=== PATIENT | female | born 1930 | race Caucasian/White ===

== ENCOUNTER → 2016-12-01 | Outpatient (CLI) | payer OTHER, BC ==
--- NOTE | 2016-12-01 16:38 | MAMMOGRAPHY REPORT ---
UNILATERAL LEFT DIGITAL SCREENING MAMMOGRAM WITH CAD: 12/01/2016 CLINICAL HISTORY: Routine screening examination. Personal history of right breast cancer status pos t mastectomy. TECHNIQUE: Left CC and MLO views were obtained. Current study was also evaluated with a Computer ded Detection (CAD) system. COMPARISON: Comparison is made to exams dated: 12/01/2016 mammogram, 11/26/2015 mammogram, 11/14/2014 m ammogram, and 10/07/2012 mammogram - [facility]. BREAST COMPOSITION: The tissue of the left breast is heterogeneously dense, which may obscure small masses. FINDINGS: The parenchymal pattern is unchanged. Again seen are moderate vascular calcifications. No developing mass, architectural distortion or cluster of suspicious microcalcifications is seen. IMPRESSION: ACR BI-RADS CATEGORY 2: BENIGN Stable mammographic appearance of the left breast, without mammographic evidence of malignancy. A 1 year screening mammogram is recommended. The patient will receive written notification of the resul ts. Approximately 10% of breast cancers are not detected with mammography. A negative mammographic repor t should not delay biopsy if a clinically suggestive mass is present. Yun Mayes M.D. ay/:12/01/2016 15:51:42 Clinic Lpn: Tiffanie SCHULTZ(Micki)(Edy), [facility] letter sent: Normal 1/2 BI-RADS Code: ACR BI-RADS Category 2: Benign
== END | disposition home or self-care (01) ==
LOC: C.MAMM 13:33
PROVIDERS: ATTEND Internal Medicine
DX: Z12.31 Encounter for screening mammogram for malignant neoplasm of breast (principal); Z85.3 Personal history of malignant neoplasm of breast; Z90.10 Acquired absence of unspecified breast and nipple; Z78.0 Asymptomatic menopausal state

== ENCOUNTER → 2016-12-25 | Outpatient (CLI) | payer OTHER, BC | END | disposition home or self-care (01) | LOC: C.LABFOXMH 07:40 | PROVIDERS: ATTEND Internal Medicine | DX: M81.0 Age-related osteoporosis without current pathological fracture (principal) ==

== ENCOUNTER → 2017-02-23 | Outpatient (CLI) | payer OTHER, BC ==
[2017-02-23 10:43] LABS: BLOOD UREA NITROGEN 23 mg/dl (7-18); BUN/CREATININE RATIO 17.7 (10-20); CALCIUM 9.5 mg/dl (8.5-10.1); CARBON DIOXIDE 29 mmol/L (21-32); CHLORIDE 107 mmol/L (98-107); GLUCOSE 113 mg/dl (70-99); POTASSIUM 4.2 mmol/L (3.5-5.1); SODIUM 145 mmol/L (136-145)
== END | disposition home or self-care (01) ==
LOC: C.LABFOXMH 08:56
PROVIDERS: ATTEND Internal Medicine
DX: N18.3 Chronic kidney disease, stage 3 (moderate) (principal); E78.4 Other hyperlipidemia

== ENCOUNTER → 2017-07-20 | Outpatient (CLI) | payer OTHER, BC | END | disposition home or self-care (01) | LOC: C.LABFOXMH 12:15 | PROVIDERS: ATTEND Internal Medicine | DX: R35.0 Frequency of micturition (principal); R30.0 Dysuria ==

== ENCOUNTER → 2017-10-08 | Outpatient (CLI) | payer OTHER, BC ==
--- NOTE | 2017-10-19 14:08 | CODING QUERY NO DIAGNOSIS ---
: 1930 Valid Physician Order Needed A valid physician order must be submitted in order to properly bill for the service(s) provided, including date of service(s), valid diagnosis, and physician signature. If these tests are done on a recurring basis the original physician order must be submitted in order to code and bill for the service(s) provided. Please fax us the original, signed physician order so that we may expedite billing to [phone] DOS 10/08/2017 * Urine clean catch culture Thank you Ayah Polanco [facility] Information Management
== END | disposition home or self-care (01) ==
LOC: C.LABFOXDH 23:40
PROVIDERS: ATTEND Internal Medicine
DX: R53.83 Other fatigue (principal); R35.0 Frequency of micturition

== ENCOUNTER → 2017-10-09 | Outpatient (CLI) | payer OTHER, BC ==
[2017-10-09 08:46] LABS: HEMOGLOBIN 11.4 g/dL (12.0-16.0); MEAN CELL VOLUME 96.9 fL (80-100); MEAN CORPUSCULAR HEMOGLOBIN 32.5 pg (25-34); MEAN CORPUSCULAR HGB CONC 33.5 g/dl (32-36); MEAN PLATELET VOLUME 10.2 fL (7.4-10.4); PLATELET COUNT 170 K/uL (130-400); RED CELL DISTRIBUTION WIDTH CV 13.4 % (11.5-14.5); RED CELL DISTRIBUTION WIDTH SD 47.6 fL (36.4-46.3); WHITE BLOOD COUNT 8.03 K/uL (4.8-10.8)
[2017-10-09 08:55] LABS: ALBUMIN 3.1 gm/dl (3.4-5.0); ALT/SGPT 18 U/L (12-78); BLOOD UREA NITROGEN 17 mg/dl (7-18); CALCIUM 10.1 mg/dl (8.5-10.1); CARBON DIOXIDE 30 mmol/L (21-32); CREATININE 1.28 mg/dl (0.60-1.20); GLUCOSE 111 mg/dl (70-99); POTASSIUM 4.1 mmol/L (3.5-5.1); SODIUM 142 mmol/L (136-145)
[2017-10-09 08:58] LABS: ALKALINE PHOSPHATASE 77 U/L (45-117); AST/SGOT 12 U/L (15-37); TOTAL PROTEIN 6.2 gm/dl (6.4-8.2)
--- NOTE | 2017-10-14 08:37 | CODING QUERY NO DIAGNOSIS ---
: 1930 Valid Physician Order Needed A valid physician order must be submitted in order to properly bill for the service(s) provided, including date of service(s), valid diagnosis, and physician signature. If these tests are done on a recurring basis the original physican order must be submitted in order to code and bill for the service(s) provided. Please fax us the original, signed physician order so that we may expedite billing to [phone] DOS 10/09/2017 * Comp. Metabolic Panel * CBC Thank you Ayah Polanco [facility] Information Management
== END | disposition home or self-care (01) ==
LOC: C.LABFOXDH 08:02
PROVIDERS: ATTEND Internal Medicine
DX: R53.83 Other fatigue (principal)

== ENCOUNTER → 2017-10-13 | Outpatient (CLI) | payer OTHER, BC ==
[2017-10-13 10:54] LABS: BLOOD UREA NITROGEN 21 mg/dl (7-18); GLUCOSE 102 mg/dl (70-99)
[2017-10-13 10:55] LABS: CALCIUM 9.1 mg/dl (8.5-10.1); CARBON DIOXIDE 29 mmol/L (21-32); POTASSIUM 3.9 mmol/L (3.5-5.1); SODIUM 140 mmol/L (136-145)
== END | disposition home or self-care (01) ==
LOC: C.LABFOXDH 09:33
PROVIDERS: ATTEND Internal Medicine
DX: R11.0 Nausea (principal)

== ENCOUNTER → 2017-11-10 | Outpatient (CLI) | payer OTHER, BC ==
[2017-11-10 09:32] LABS: ALBUMIN 3.1 gm/dl (3.4-5.0); ALT/SGPT 30 U/L (12-78); AST/SGOT 26 U/L (15-37); BLOOD UREA NITROGEN 31 mg/dl (7-18); CALCIUM 9.2 mg/dl (8.5-10.1); CARBON DIOXIDE 30 mmol/L (21-32); CHOLESTEROL 151 mg/dl (0-200); CREATININE 1.46 mg/dl (0.60-1.20); GLUCOSE 108 mg/dl (70-99); POTASSIUM 4.5 mmol/L (3.5-5.1); SODIUM 143 mmol/L (136-145)
[2017-11-10 09:42] LABS: ALKALINE PHOSPHATASE 57 U/L (45-117); LDL CHOLESTEROL CALCULATED 63 mg/dl; TOTAL PROTEIN 5.6 gm/dl (6.4-8.2)
== END | disposition home or self-care (01) ==
LOC: C.LABFOXMH 09:03
PROVIDERS: ATTEND Internal Medicine
DX: E78.00 Pure hypercholesterolemia, unspecified (principal)

== ENCOUNTER → 2017-12-21 | Outpatient (CLI) | payer OTHER, BC ==
[2017-12-21 08:14] LABS: BLOOD UREA NITROGEN 20 mg/dl (7-18); CALCIUM 9.7 mg/dl (8.5-10.1); CARBON DIOXIDE 31 mmol/L (21-32); CREATININE 1.22 mg/dl (0.60-1.20); GLUCOSE 89 mg/dl (70-99); POTASSIUM 4.5 mmol/L (3.5-5.1); SODIUM 144 mmol/L (136-145)
== END | disposition home or self-care (01) ==
LOC: C.LABFOXMH 07:47
PROVIDERS: ATTEND Internal Medicine Hospice and Palliative Medicine
DX: I10 Essential (primary) hypertension (principal)

== ENCOUNTER → 2018-01-04 | Outpatient (CLI) | payer OTHER, BC ==
--- NOTE | 2018-01-05 07:40 | MAMMOGRAPHY REPORT ---
UNILATERAL LEFT DIGITAL SCREENING MAMMOGRAM TOMOSYNTHESIS WITH CAD: 01/04/2018 CLINICAL HISTORY: Asymptomatic. Personal history of breast cancer. TECHNIQUE: Left breast tomosynthesis in addition to standard 2D mammography was performed. Current st udy was also evaluated with a Computer Aided Detection (CAD) system. COMPARISON: Comparison is made to exams dated: 12/01/2016 mammogram, 11/26/2015 mammogram, 11/14/2014 ma mmogram, 10/10/2013 mammogram, 10/07/2012 mammogram, and 09/29/2011 mammogram - [facility]ter. BREAST COMPOSITION: The tissue of the left breast is heterogeneously dense, which may obscure small masses. FINDINGS: Some of the images are suboptimal due to patient motion. Therefore additional 2D left MLO and exaggerated lateral CC views were obtained. Within the limitations of the exam, there are no new suspicious masses, asymmetries, areas of architectural distortion or suspicious microcalcifications. Mild vascular calcifications are again noted. IMPRESSION: ACR BI-RADS CATEGORY 2: BENIGN There is no mammographic evidence of malignancy. A 1 year screening mammogram is recommended. The pa tient will receive written notification of the results. Approximately 10% of breast cancers are not detected with mammography. A negative mammographic report should not delay biopsy if a clinically suggestive mass is present. Yun Mayes M.D. ay/:01/04/2018 15:32:35 Field Assembly Supervisor: Maggie MCINTYRE)(Edy), [facility] letter sent: Normal 1/2 BI-RADS Code: ACR BI-RADS Category 2: Benign
== END | disposition home or self-care (01) ==
LOC: C.MAMM 14:27
PROVIDERS: ATTEND Internal Medicine
DX: Z12.31 Encounter for screening mammogram for malignant neoplasm of breast (principal); Z85.3 Personal history of malignant neoplasm of breast